=== PATIENT | female | born 1945 | race Caucasian/White ===

== ENCOUNTER 2019-04-30 19:04 | Inpatient (IN) | payer MEDICARE, OTHER ==
[~2019-04-30] VITALS: Ht 167.6 cm; Wt 62.3 kg
[2019-04-30 19:00] VITALS: BP 99/59
[2019-04-30] MEDS ORDERED: Z GUARD REMEDY PASTE 57 GM TUBE TOP PRN (19:15)
--- NOTE | 2019-04-30 19:22 | NUR ---
Patient arrived at 1825 via [facility] and [facility] ambulance service, vitals: 99/59, 83 HR, 98% on room air, 98.5 oral temperature, 17 respirations, stool collected and sent to lab for possible blood in stool, picture of sacral wound taken, will endorse admission to night shift supervisor nurse
[2019-04-30] MEDS ORDERED: ZINC220C8 PO (19:57)
[2019-04-30] MEDS ORDERED: FOLI1TAB16 PO (19:57)
[2019-04-30] MEDS ORDERED: HYDR10SY16 PO (19:57)
[2019-04-30] MEDS ORDERED: CARV6.252 PO (19:57)
[2019-04-30] MEDS ORDERED: GABA-534 PO (19:57)
[2019-04-30] MEDS ORDERED: ASCO500T10 PO (19:57)
[2019-04-30] MEDS ORDERED: NAPR220C15 PO (19:57)
[2019-04-30] MEDS ORDERED: ESCI10TA PO (19:57)
[2019-04-30] MEDS ORDERED: AMLO5TAB9 PO (19:57)
[2019-04-30] MEDS ORDERED: THIA100T13 PO (19:57)
[2019-04-30] MEDS ORDERED: MIRT30TA PO (19:57)
[2019-04-30] MEDS ORDERED: OXYB10TA2 PO (19:57)
[2019-04-30] MEDS ORDERED: METO25TA6 PO (19:57)
[2019-04-30] MEDS ORDERED: MULT-213 PO (19:57)
[2019-04-30 20:08] LABS: *OCCULT BLOOD STOOL POSITIVE (NEGATIVE)
[2019-04-30] MEDS ORDERED: MIRTAZAPINE 15 MG TABLET PO PRN (20:30)
[2019-04-30] MEDS ORDERED: hydrOXYzine HCL 10 MG/5 ML UDC PO PRN (20:30)
[2019-04-30 20:46] VITALS: BP 108/52
--- NOTE | 2019-04-30 22:02 | NUR ---
Received pt resting in bed. AAO x1-2. No acute distress noted. Denies pain/discomfort, no facial cues noted. Pertinent assessment done. MRSA swab sent to lab. VSS. Notified Dr. Escobar and Dr. Mata notified of admission. Med recon done. Belonging's list done and placed in chart. Oriented pt to the room. Safety measures maintained. Call light within reach. Will continue to monitor.
[2019-05-01 04:50] VITALS: BP 108/75
[2019-05-01 07:59] VITALS: BP 113/60
[2019-05-01] MEDS: GABAPENTIN 300 MG CAPSULE PO SCH ×3 (08:19→16:38)
[2019-05-01] MEDS: ESCITALOPRAM OXALATE 10 MG TABLET PO SCH (08:19)
[2019-05-01] MEDS: ZINC SULFATE 220 MG CAPSULE PO SCH (08:19)
[2019-05-01] MEDS: CARVEDILOL 6.25 MG TABLET PO SCH ×2 (08:20→16:38)
[2019-05-01] MEDS: THIAMINE HCL 100 MG TABLET PO SCH (08:20)
[2019-05-01] MEDS: ASCORBIC ACID 500 MG TABLET PO SCH ×2 (08:20→16:38)
[2019-05-01] MEDS: AMLODIPINE 5 MG TABLET PO SCH (08:20)
[2019-05-01] MEDS: FOLIC ACID 1 MG TABLET PO SCH (08:20)
[2019-05-01] MEDS: MULTIVITAMINS,THERAPEUTIC TABLET PO SCH (08:20)
[2019-05-01] MEDS: OXYBUTYNIN XL 5 MG TABSR PO SCH (08:21)
[2019-05-01] MEDS: METOPROLOL TARTRATE 25 MG TABLET PO SCH ×2 (08:21→16:38)
[2019-05-01] MEDS ORDERED: hydrOXYzine HCL 10 MG TABLET PO PRN (11:15)
--- NOTE | 2019-05-01 13:27 | NUR ---
Patient s/p new admission. Alert and oriented x2 with periods of confusion. Patient stage II pressure ulcer noted. Cleanse and applied hydrogel covered with mepilex. MD Lizarraga ordered wound consult for further observation. not in distress. positive occult blood relayed with no new order. Patient refuse therapy outside the room. will continue monitor
[2019-05-01 16:00] VITALS: BP 116/61
[2019-05-01 20:02] VITALS: BP 111/62
[2019-05-01] MEDS: MIRTAZAPINE 15 MG TABLET PO SCH (20:07)
--- NOTE | 2019-05-01 20:26 | NUR ---
Received pt sleeping comfortably. Aroused easily to verbal stimuli. AAO x1-2. No acute distress noted. Denies pain / discomfort. Due med given as ordered. Safety measures maintained. Call light and personal belongings within reach. Will continue to monitor.
[2019-05-02 04:07] VITALS: BP 127/66
[2019-05-02] MEDS: NAPROXEN 250 MG TABLET PO PRN ×2 (06:05→16:29)
--- NOTE | 2019-05-02 07:03 | NUR ---
Pt slept comfortably at night. All needs attended to promptly. Skin and wound care rendered. Turned and repositioned. Will endorse accordingly to oncoming shift.
[2019-05-02 08:25] VITALS: BP 106/63
[2019-05-02] MEDS: MULTIVITAMINS,THERAPEUTIC TABLET PO SCH (08:37)
[2019-05-02] MEDS: FOLIC ACID 1 MG TABLET PO SCH (08:37)
[2019-05-02] MEDS: CARVEDILOL 6.25 MG TABLET PO SCH ×2 (08:37→16:27)
[2019-05-02] MEDS: THIAMINE HCL 100 MG TABLET PO SCH (08:38)
[2019-05-02] MEDS: ZINC SULFATE 220 MG CAPSULE PO SCH (08:38)
[2019-05-02] MEDS: OXYBUTYNIN XL 5 MG TABSR PO SCH (08:38)
[2019-05-02] MEDS: ESCITALOPRAM OXALATE 10 MG TABLET PO SCH (08:38)
[2019-05-02] MEDS: GABAPENTIN 300 MG CAPSULE PO SCH ×3 (08:38→16:28)
[2019-05-02] MEDS: ASCORBIC ACID 500 MG TABLET PO SCH ×2 (08:38→16:28)
[2019-05-02] MEDS: AMLODIPINE 5 MG TABLET PO SCH (08:44)
[2019-05-02] MEDS: METOPROLOL TARTRATE 25 MG TABLET PO SCH ×2 (08:45→16:28)
--- NOTE | 2019-05-02 12:50 | NUR ---
WOUND CARE CONSULT: PT PRESENTS WITH SACRAL STAGE 2 ULCER AND RT ELBOW DRY ABRASION, PRESENT ON ADMISSION. RECOMMENDATIONS MADE FOR WOUND CARE AND SKIN PROTECTION. DISCUSSED WITH NURSING STAFF. PT IS INCONTINENT. WILL SEE PRN. ORR IN AGREEMENT WITH PLAN OF CARE. Addendum: 05/02/19 at 1251 by CHE BARCENAS RN Amended: Links added.
--- NOTE | 2019-05-02 14:22 | NUR ---
Pt received this morning resting in bed. Pt assessed, AOx2, forgetful at times, reports generalized stomach discomfort. Pt teaching provided on PRN medication given at 6am on an empty stomach. Discomfort subsided. Pt assisted to bathroom for voiding and BMx1. Pt compliant with routine medication, BP medication held due to VS 106/63, 80 hr. No acute distress or SOB noted on RA. Pt seen by MD, no new orders at this time. Pt seen by Lo AVILEZ for wound consult r/t sacral stage 2 and right elbow wound. Wound care provided as ordered. Bed in locked and lowest position with side rails up x2. Bed alarm on. All safety and comfort needs promptly attended to this shift. Personal items and call light placed within reach. Will continue to monitor.
[2019-05-02 16:14] VITALS: BP 109/65
--- NOTE | 2019-05-02 19:00 | NUR ---
In bed, awake, watching TV. Complaint of bilateral leg pain at this time. Will medicate for pain as needed. Safety measure and fall precaution maintained. Continue care as planned.
[2019-05-02] MEDS: ACETAMINOPHEN 325 MG TABLET PO PRN (19:31)
--- NOTE | 2019-05-02 19:32 | NUR ---
Medicated with Tylenol 650 mg for complaint of bilateral leg pain. Will monitor.
[2019-05-02 19:44] VITALS: BP 102/65
[2019-05-02] MEDS: MIRTAZAPINE 15 MG TABLET PO SCH (20:25)
[2019-05-03 05:59] VITALS: BP 108/61
--- NOTE | 2019-05-03 06:12 | NUR ---
Shift End Report: Vs stable. Slept good. Medicated once for BLE pain with relief. No further complaint presented. All needs attended and met. No significant event reported all night. Continue current rehab plan of care.
[2019-05-03 07:05] LABS: BASOPHILS % (AUTO) 0.4 % (0.0-2.0); EOSINOPHILS # (AUTO) 0.1 K/uL (0.0-0.7); HEMATOCRIT 34.1 % (31.2-41.9); HEMOGLOBIN 11.3 g/dL (10.9-14.3); LYMPHOCYTES # (AUTO) 2.4 K/uL (20.0-40.0); LYMPHOCYTES % (AUTO) 28.9 % (20.5-51.5); MEAN CORPUSCULAR HEMOGLOBIN 27.4 uug (24.7-32.8); MEAN CORPUSCULAR HGB CONC 33 g/dL (32.3-35.6); MEAN CORPUSCULAR VOLUME 82.5 fL (75.5-95.3); MONOCYTES # (AUTO) 0.8 K/uL (2.0-10.0); MONOCYTES % (AUTO) 9.7 % (0.0-11.0); PLATELET COUNT (AUTO) 265 K/uL (179-408); RED BLOOD CELL COUNT(AUTO) 4.13 MIL/uL (3.63-4.92); WHITE BLOOD COUNT (AUTO) 8.3 K/uL (3.8-11.8)
[2019-05-03 07:27] LABS: ALANINE AMINOTRANSFERASE 15 U/L (14-59); ALKALINE PHOSPHATASE 46 U/L (50-136); ASPARTATE AMINOTRANSFERASE 11 U/L (15-37); BILIRUBIN,TOTAL 0.3 mg/dL (0.2-1.0); CARBON DIOXIDE 30 mmol/L (21-32); CHLORIDE 104 mmol/L (98-107); CREATININE 0.9 mg/dL (0.6-1.3); GLUCOSE 88 mg/dL (74-106); TOTAL PROTEIN, SERUM 6.5 g/dL (6.4-8.2); UREA NITROGEN, BLOOD 23 mg/dL (7-18)
[2019-05-03 07:44] VITALS: BP 114/63
[2019-05-03] MEDS: MULTIVITAMINS,THERAPEUTIC TABLET PO SCH (08:08)
[2019-05-03] MEDS: OXYBUTYNIN XL 5 MG TABSR PO SCH (08:10)
[2019-05-03] MEDS: METOPROLOL TARTRATE 25 MG TABLET PO SCH ×2 (08:10→17:00)
[2019-05-03] MEDS: CARVEDILOL 6.25 MG TABLET PO SCH ×2 (08:10→17:00)
[2019-05-03] MEDS: AMLODIPINE 5 MG TABLET PO SCH (08:11)
[2019-05-03] MEDS: FOLIC ACID 1 MG TABLET PO SCH (08:11)
[2019-05-03] MEDS: ESCITALOPRAM OXALATE 10 MG TABLET PO SCH (08:11)
[2019-05-03] MEDS: ZINC SULFATE 220 MG CAPSULE PO SCH (08:11)
[2019-05-03] MEDS: GABAPENTIN 300 MG CAPSULE PO SCH ×3 (08:11→17:14)
[2019-05-03] MEDS: THIAMINE HCL 100 MG TABLET PO SCH (08:11)
[2019-05-03] MEDS: ASCORBIC ACID 500 MG TABLET PO SCH ×2 (08:11→17:14)
[2019-05-03] MEDS: Z GUARD REMEDY PASTE 57 GM TUBE TOP SCH ×2 (08:12→21:22)
--- NOTE | 2019-05-03 10:45 | NUR ---
Patient noted paste and smelly x2 BM. MD Lizarraga made aware. not in distress. no complaint voiced noted. Continue participating therapy for unsteady gait and ADL activity with good effect. will continue monitor
--- NOTE | 2019-05-03 11:00 | NUR ---
INDIVIDUALIZED OVERALL PLAN OF CARE
[2019-05-03 16:16] VITALS: BP 101/60
--- NOTE | 2019-05-03 19:05 | NUR ---
Awake in bed, watching TV at this time. Requested diaper change at this time. [employer] ATTENDANT at bedside. Denies any pain/discomforts. Safety measure and fall precaution maintained. Continue care as planned.
[2019-05-03] MEDS: MIRTAZAPINE 15 MG TABLET PO SCH (20:26)
[2019-05-03 21:04] VITALS: BP 96/62
[2019-05-04 04:20] VITALS: BP 121/71
--- NOTE | 2019-05-04 06:52 | NUR ---
Patient sleeping comfortably at this time, breathing is even and unlabored. Skin warm and dry to touch. Assisted with ADLs during shift, skin kept clean and dry; needs attended, call light at bed side, safety measures in place. endorsed to next shift and will continue with care.
[2019-05-04 08:10] VITALS: BP 113/57
[2019-05-04] MEDS: GABAPENTIN 300 MG CAPSULE PO SCH ×3 (08:30→17:01)
[2019-05-04] MEDS: ZINC SULFATE 220 MG CAPSULE PO SCH (08:31)
[2019-05-04] MEDS: ESCITALOPRAM OXALATE 10 MG TABLET PO SCH (08:31)
[2019-05-04] MEDS: FOLIC ACID 1 MG TABLET PO SCH (08:31)
[2019-05-04] MEDS: AMLODIPINE 5 MG TABLET PO SCH (08:31)
[2019-05-04] MEDS: THIAMINE HCL 100 MG TABLET PO SCH (08:31)
[2019-05-04] MEDS: ASCORBIC ACID 500 MG TABLET PO SCH ×2 (08:31→17:01)
[2019-05-04] MEDS: METOPROLOL TARTRATE 25 MG TABLET PO SCH ×2 (08:31→17:00)
[2019-05-04] MEDS: MULTIVITAMINS,THERAPEUTIC TABLET PO SCH (08:31)
[2019-05-04] MEDS: OXYBUTYNIN XL 5 MG TABSR PO SCH (08:31)
[2019-05-04] MEDS: CARVEDILOL 6.25 MG TABLET PO SCH ×2 (08:32→17:00)
[2019-05-04] MEDS: Z GUARD REMEDY PASTE 57 GM TUBE TOP SCH ×2 (08:32→21:50)
--- NOTE | 2019-05-04 14:57 | NUR ---
INTERDISCIPLINARY TEAM CONFERENCE
--- NOTE | 2019-05-04 15:51 | NUR ---
Patient continue therapy for unsteady gait and ADL activity. Continue on pain management prior to therapy and if needed. not in distress. will continue monitor
[2019-05-04 16:45] VITALS: BP 108/58
[2019-05-04 20:25] VITALS: BP 119/65
[2019-05-04] MEDS: MIRTAZAPINE 15 MG TABLET PO SCH (21:45)
--- NOTE | 2019-05-05 04:58 | NUR ---
Patient sleeping comfortably at this time, easily arousable; A & O x 2-3, in NO acute distress. Breathing is even and unlabored. Vital signs taken and stable. Due medications administered as ordered and scheduled. Assisted with ADLs during shift; Needs attended, kept clean and dry. Safety measures in place, call light left at bed side and will continue with care.
[2019-05-05 06:02] VITALS: BP 129/66
--- NOTE | 2019-05-05 08:00 | NUR ---
Received patient resting in bed awake, alert x23 with periods of forgetfulness and confusion. Not in any form of distress. No pain noted. No s/s of infection. Morning care done. Call light within reach.
[2019-05-05 09:12] VITALS: BP 134/60
--- NOTE | 2019-05-05 09:30 | NUR ---
Up with physical therapy tolerating well. Able to ambulate with front wheel walker, no pain noted.
[2019-05-05] MEDS: CARVEDILOL 6.25 MG TABLET PO SCH ×2 (09:48→17:53)
[2019-05-05] MEDS: FOLIC ACID 1 MG TABLET PO SCH (09:48)
[2019-05-05] MEDS: ESCITALOPRAM OXALATE 10 MG TABLET PO SCH (09:49)
[2019-05-05] MEDS: MULTIVITAMINS,THERAPEUTIC TABLET PO SCH (09:49)
[2019-05-05] MEDS: GABAPENTIN 300 MG CAPSULE PO SCH ×3 (09:49→17:52)
[2019-05-05] MEDS: AMLODIPINE 5 MG TABLET PO SCH (09:49)
[2019-05-05] MEDS: THIAMINE HCL 100 MG TABLET PO SCH (09:50)
[2019-05-05] MEDS: METOPROLOL TARTRATE 25 MG TABLET PO SCH ×2 (09:50→17:53)
[2019-05-05] MEDS: OXYBUTYNIN XL 5 MG TABSR PO SCH (09:50)
[2019-05-05] MEDS: ASCORBIC ACID 500 MG TABLET PO SCH ×2 (09:50→17:52)
[2019-05-05] MEDS: ZINC SULFATE 220 MG CAPSULE PO SCH (09:50)
[2019-05-05] MEDS: Z GUARD REMEDY PASTE 57 GM TUBE TOP SCH ×2 (09:58→20:33)
[2019-05-05 15:40] VITALS: BP 102/60
[2019-05-05 19:45] VITALS: BP 102/52
[2019-05-05] MEDS: MIRTAZAPINE 15 MG TABLET PO SCH (20:32)
--- NOTE | 2019-05-05 21:16 | NUR ---
Received pt resting in bed. AAO x2. No acute distress noted. Denies pain/ discomfort. Snack given as per request. VS WNL. Due med given as ordered. Refused diaper change and wound care at this time stating that she will call if she needs to be changed. Risks and benefits explained. Safety measures maintained. Call light within reach. Will continue to monitor.
--- NOTE | 2019-05-06 05:15 | NUR ---
Pt slept comfortably at night. Diaper changed. Wound and skin care rendered. All needs attended to promptly. Will continue to monitor.
[2019-05-06 05:30] VITALS: BP 112/71
[2019-05-06 07:39] LABS: BASOPHILS # (AUTO) 0.1 K/uL (0.0-8.0); BASOPHILS % (AUTO) 1.1 % (0.0-2.0); EOSINOPHILS # (AUTO) 0.1 K/uL (0.0-0.7); EOSINOPHILS % (AUTO) 0.9 % (0.0-7.0); HEMATOCRIT 35.5 % (31.2-41.9); HEMOGLOBIN 11.8 g/dL (10.9-14.3); LYMPHOCYTES # (AUTO) 2.5 K/uL (20.0-40.0); LYMPHOCYTES % (AUTO) 29.6 % (20.5-51.5); MEAN CORPUSCULAR HEMOGLOBIN 27.4 uug (24.7-32.8); MEAN CORPUSCULAR HGB CONC 33 g/dL (32.3-35.6); MEAN CORPUSCULAR VOLUME 82.5 fL (75.5-95.3); MONOCYTES # (AUTO) 0.7 K/uL (2.0-10.0); MONOCYTES % (AUTO) 8.6 % (0.0-11.0); NEUTROPHILS # (AUTO) 5.1 K/uL (1.8-8.9); NEUTROPHILS % (AUTO) 59.8 % (38.5-71.5); PLATELET COUNT (AUTO) 293 K/uL (179-408); WHITE BLOOD COUNT (AUTO) 8.5 K/uL (3.8-11.8)
[2019-05-06 07:50] LABS: CARBON DIOXIDE 26 mmol/L (21-32); CHLORIDE 105 mmol/L (98-107); GLUCOSE 92 mg/dL (74-106); MAGNESIUM 1.6 mg/dL (1.8-2.4); PHOSPHOROUS 4.5 mg/dL (2.5-4.9); POTASSIUM 4.3 mmol/L (3.5-5.1); UREA NITROGEN, BLOOD 20 mg/dL (7-18)
--- NOTE | 2019-05-06 08:04 | NUR ---
Patient noted resting in bed, no complaints of pain, no signs of distress noted, call light in reach, bed locked and in lowest positon, all needs met at this time
[2019-05-06] MEDS: THIAMINE HCL 100 MG TABLET PO SCH (08:59)
[2019-05-06] MEDS: ESCITALOPRAM OXALATE 10 MG TABLET PO SCH (08:59)
[2019-05-06] MEDS: OXYBUTYNIN XL 5 MG TABSR PO SCH (08:59)
[2019-05-06] MEDS: GABAPENTIN 300 MG CAPSULE PO SCH ×3 (08:59→17:02)
[2019-05-06] MEDS: FOLIC ACID 1 MG TABLET PO SCH (08:59)
[2019-05-06] MEDS: ASCORBIC ACID 500 MG TABLET PO SCH ×2 (08:59→17:02)
[2019-05-06] MEDS: MULTIVITAMINS,THERAPEUTIC TABLET PO SCH (08:59)
[2019-05-06] MEDS: AMLODIPINE 5 MG TABLET PO SCH (09:00)
[2019-05-06] MEDS: ZINC SULFATE 220 MG CAPSULE PO SCH (09:00)
[2019-05-06] MEDS: CARVEDILOL 6.25 MG TABLET PO SCH ×2 (09:00→17:00)
[2019-05-06] MEDS: METOPROLOL TARTRATE 25 MG TABLET PO SCH ×2 (09:00→17:00)
[2019-05-06] MEDS: Z GUARD REMEDY PASTE 57 GM TUBE TOP SCH ×2 (09:03→20:15)
[2019-05-06 09:24] VITALS: BP 94/58
[2019-05-06] MEDS ORDERED: MAGNESIUM OXIDE 400 MG TABLET PO ONE (16:00)
[2019-05-06 16:34] VITALS: BP 98/52
[2019-05-06] MEDS: ACETAMINOPHEN 325 MG TABLET PO PRN (17:02)
[2019-05-06 19:45] VITALS: BP 97/51
[2019-05-06] MEDS: MIRTAZAPINE 15 MG TABLET PO SCH (20:14)
--- NOTE | 2019-05-06 20:54 | NUR ---
Received pt resting in bed. AAO x2. No acute distress noted. Denies pain/discomfort. Due med given as ordered. Safety measures maintained. Call light within reach. Will continue to monitor.
[2019-05-07 06:13] VITALS: BP 124/69
--- NOTE | 2019-05-07 08:00 | NUR ---
Received patient, awake alert x2-3. With periods of forgetfulness. Re-oriented as necessary. Morning care done, katie-care done. Not in any form of distress, denies any pain.
[2019-05-07 09:00] VITALS: BP 108/70
[2019-05-07] MEDS: CARVEDILOL 6.25 MG TABLET PO SCH ×2 (09:00→17:00)
[2019-05-07] MEDS: METOPROLOL TARTRATE 25 MG TABLET PO SCH ×2 (09:00→17:00)
[2019-05-07] MEDS: AMLODIPINE 5 MG TABLET PO SCH (09:00)
[2019-05-07] MEDS: GABAPENTIN 300 MG CAPSULE PO SCH ×3 (09:06→17:29)
[2019-05-07] MEDS: ESCITALOPRAM OXALATE 10 MG TABLET PO SCH (09:06)
[2019-05-07] MEDS: FOLIC ACID 1 MG TABLET PO SCH (09:06)
[2019-05-07] MEDS: ASCORBIC ACID 500 MG TABLET PO SCH ×2 (09:07→17:29)
[2019-05-07] MEDS: MULTIVITAMINS,THERAPEUTIC TABLET PO SCH (09:07)
[2019-05-07] MEDS: THIAMINE HCL 100 MG TABLET PO SCH (09:07)
[2019-05-07] MEDS: OXYBUTYNIN XL 5 MG TABSR PO SCH (09:07)
[2019-05-07] MEDS: ZINC SULFATE 220 MG CAPSULE PO SCH (09:10)
[2019-05-07] MEDS: Z GUARD REMEDY PASTE 57 GM TUBE TOP SCH ×2 (09:11→20:32)
--- NOTE | 2019-05-07 11:13 | NUR ---
Up with occupational therapy, tolerating well. Able to ambulate with walker. No pain noted.
[2019-05-07 15:00] VITALS: BP 103/60
[2019-05-07 19:30] VITALS: BP 96/53
--- NOTE | 2019-05-07 19:30 | NUR ---
Sleeping during initial rounds with HOB slightly elevated. No s/s of respiratory distress. Safety measure and afll precaution maintained. Continue care as planned.
[2019-05-07] MEDS: MIRTAZAPINE 15 MG TABLET PO SCH (20:31)
[2019-05-08 05:18] VITALS: BP 96/47
--- NOTE | 2019-05-08 06:24 | NUR ---
Shift End Report: Vs stable. Slept good. No complaint presented the whole night. No significant event reported. All needs attended and met. Continue current rehab plan of care.
[2019-05-08 09:00] VITALS: BP 105/56
[2019-05-08] MEDS: METOPROLOL TARTRATE 25 MG TABLET PO SCH ×2 (09:00→17:00)
[2019-05-08] MEDS: AMLODIPINE 5 MG TABLET PO SCH (09:00)
[2019-05-08] MEDS: CARVEDILOL 6.25 MG TABLET PO SCH ×2 (09:00→17:00)
[2019-05-08] MEDS: THIAMINE HCL 100 MG TABLET PO SCH (09:11)
[2019-05-08] MEDS: OXYBUTYNIN XL 5 MG TABSR PO SCH (09:11)
[2019-05-08] MEDS: ESCITALOPRAM OXALATE 10 MG TABLET PO SCH (09:11)
[2019-05-08] MEDS: ZINC SULFATE 220 MG CAPSULE PO SCH (09:11)
[2019-05-08] MEDS: MULTIVITAMINS,THERAPEUTIC TABLET PO SCH (09:11)
[2019-05-08] MEDS: ASCORBIC ACID 500 MG TABLET PO SCH ×2 (09:12→18:11)
[2019-05-08] MEDS: GABAPENTIN 300 MG CAPSULE PO SCH ×3 (09:13→18:11)
[2019-05-08] MEDS: FOLIC ACID 1 MG TABLET PO SCH (09:14)
[2019-05-08] MEDS: Z GUARD REMEDY PASTE 57 GM TUBE TOP SCH ×2 (09:18→20:05)
--- NOTE | 2019-05-08 09:35 | NUR ---
Received patient resting in bed, awake, alert x2-3. Denies any pain, no S/S of infections. With some periods of forgetfulness, baseline LOC. Not in any form of distress. Will continue to monitor.
--- NOTE | 2019-05-08 11:32 | NUR ---
Up with occupational therapy, showered with minimal assistance. Tolerated therapy well no pain noted. Able to ambulate with walker.
[2019-05-08 17:00] VITALS: BP 118/54
--- NOTE | 2019-05-08 19:30 | NUR ---
RECEIVED PATIENT AWAKE AND RESTING WELL. NO S/S OF RESPIRATORY DISTRESS NOTED. V/S STABLE. FALL PRECAUTIONS MAINTAINED. CALL LIGHT WITH IN REACH. WILL CONTINUE TO MONITOR
[2019-05-08] MEDS: MIRTAZAPINE 15 MG TABLET PO SCH (20:04)
[2019-05-08 20:05] VITALS: BP 106/56
--- NOTE | 2019-05-09 07:03 | NUR ---
SHIFT END REPORT: V/S STABLE. SLEPT GOOD THROUGH NIGHT. NO C/O PAIN. NO ACUTE DISTRESS NOTED. NO SIGNIFICANT EVENT REPORTED. ALL NEEDS ATTENDED AND MET. CONTINUE CURRENT PLAN OF CARE.
--- NOTE | 2019-05-09 08:11 | NUR ---
Received patient resting in bed, awake, alert x2-3. Denies any pain, no S/S of infections. With some periods of forgetfulness, baseline LOC. Not in any form of distress. Morning care done.
[2019-05-09 09:00] VITALS: BP 119/66
[2019-05-09] MEDS: MULTIVITAMINS,THERAPEUTIC TABLET PO SCH (09:19)
[2019-05-09] MEDS: FOLIC ACID 1 MG TABLET PO SCH (09:19)
[2019-05-09] MEDS: GABAPENTIN 300 MG CAPSULE PO SCH ×3 (09:19→17:29)
[2019-05-09] MEDS: METOPROLOL TARTRATE 25 MG TABLET PO SCH ×2 (09:19→17:30)
[2019-05-09] MEDS: CARVEDILOL 6.25 MG TABLET PO SCH ×2 (09:19→17:29)
[2019-05-09] MEDS: ZINC SULFATE 220 MG CAPSULE PO SCH (09:19)
[2019-05-09] MEDS: ESCITALOPRAM OXALATE 10 MG TABLET PO SCH (09:19)
[2019-05-09] MEDS: THIAMINE HCL 100 MG TABLET PO SCH (09:20)
[2019-05-09] MEDS: OXYBUTYNIN XL 5 MG TABSR PO SCH (09:20)
[2019-05-09] MEDS: ASCORBIC ACID 500 MG TABLET PO SCH ×2 (09:20→17:29)
[2019-05-09] MEDS: AMLODIPINE 5 MG TABLET PO SCH (09:20)
[2019-05-09] MEDS: Z GUARD REMEDY PASTE 57 GM TUBE TOP SCH ×2 (09:21→20:27)
--- NOTE | 2019-05-09 14:10 | NUR ---
Up with occupational therapy, tolerating well. Denies any pain. Able to ambulate with front wheel walker.
[2019-05-09 17:00] VITALS: BP 114/63
[2019-05-09 19:30] VITALS: BP 96/52
--- NOTE | 2019-05-09 19:30 | NUR ---
Received in bed watching TV. Patient alert and oriented x 3.No C/O pain or SOB upon assessment. Assisted with night time ADLs. Side rails up bilaterally. Call light and frequently used items within reach. Will continue to monitor..
[2019-05-09] MEDS: MIRTAZAPINE 15 MG TABLET PO SCH (20:26)
[2019-05-10 05:43] VITALS: BP 133/65
[2019-05-10] MEDS: ESCITALOPRAM OXALATE 10 MG TABLET PO SCH (08:34)
[2019-05-10] MEDS: ZINC SULFATE 220 MG CAPSULE PO SCH (08:34)
[2019-05-10] MEDS: METOPROLOL TARTRATE 25 MG TABLET PO SCH ×2 (08:34→17:00)
[2019-05-10] MEDS: AMLODIPINE 5 MG TABLET PO SCH (08:35)
[2019-05-10] MEDS: CARVEDILOL 6.25 MG TABLET PO SCH ×2 (08:35→17:00)
[2019-05-10] MEDS: ASCORBIC ACID 500 MG TABLET PO SCH ×2 (08:35→17:23)
[2019-05-10] MEDS: GABAPENTIN 300 MG CAPSULE PO SCH ×3 (08:35→17:23)
[2019-05-10] MEDS: FOLIC ACID 1 MG TABLET PO SCH (08:36)
[2019-05-10] MEDS: MULTIVITAMINS,THERAPEUTIC TABLET PO SCH (08:36)
[2019-05-10] MEDS: THIAMINE HCL 100 MG TABLET PO SCH (08:36)
[2019-05-10] MEDS: OXYBUTYNIN XL 5 MG TABSR PO SCH (08:36)
[2019-05-10] MEDS: Z GUARD REMEDY PASTE 57 GM TUBE TOP SCH ×2 (08:37→20:43)
--- NOTE | 2019-05-10 10:08 | NUR ---
Received patient awake in bed. Alert and orientedx2 with periods of confusion. Continue therapy for ambulation and ADL ability. no complaint of pain/discomfort noted. not in distress. will continue monitor
[2019-05-10 10:38] VITALS: BP 115/60
[2019-05-10 17:00] VITALS: BP 102/59
[2019-05-10 19:34] VITALS: BP 96/54
[2019-05-10] MEDS: MIRTAZAPINE 15 MG TABLET PO SCH (20:43)
--- NOTE | 2019-05-11 04:03 | NUR ---
awake alert and oriented x2-3 with some periods of confusion. fall precautions maintained. incontinent of urine and BM.kept clean and dry. VSS needs attended. denies any pain nor any discomfort. will monitor patient.
[2019-05-11 05:45] VITALS: BP 97/53
[2019-05-11 08:42] VITALS: BP 148/64
[2019-05-11 09:00] LABS: BASOPHILS # (AUTO) 0.1 K/uL (0.0-8.0); BASOPHILS % (AUTO) 1.1 % (0.0-2.0); EOSINOPHILS # (AUTO) 0.1 K/uL (0.0-0.7); HEMATOCRIT 35.9 % (31.2-41.9); HEMOGLOBIN 11.9 g/dL (10.9-14.3); LYMPHOCYTES # (AUTO) 2.1 K/uL (20.0-40.0); LYMPHOCYTES % (AUTO) 30.1 % (20.5-51.5); MEAN CORPUSCULAR HEMOGLOBIN 27.4 uug (24.7-32.8); MEAN CORPUSCULAR HGB CONC 33 g/dL (32.3-35.6); MEAN CORPUSCULAR VOLUME 82.6 fL (75.5-95.3); MONOCYTES # (AUTO) 0.5 K/uL (2.0-10.0); MONOCYTES % (AUTO) 7.8 % (0.0-11.0); NEUTROPHILS # (AUTO) 4.1 K/uL (1.8-8.9); PLATELET COUNT (AUTO) 274 K/uL (179-408); RED BLOOD CELL COUNT(AUTO) 4.35 MIL/uL (3.63-4.92); WHITE BLOOD COUNT (AUTO) 6.9 K/uL (3.8-11.8)
[2019-05-11] MEDS: METOPROLOL TARTRATE 25 MG TABLET PO SCH ×2 (09:00→16:23)
[2019-05-11] MEDS: AMLODIPINE 5 MG TABLET PO SCH (09:00)
[2019-05-11 09:05] LABS: CARBON DIOXIDE 27 mmol/L (21-32); CHLORIDE 104 mmol/L (98-107); CREATININE 1.1 mg/dL (0.6-1.3); GLUCOSE 156 mg/dL (74-106); MAGNESIUM 1.6 mg/dL (1.8-2.4); POTASSIUM 3.8 mmol/L (3.5-5.1); UREA NITROGEN, BLOOD 31 mg/dL (7-18)
[2019-05-11] MEDS: GABAPENTIN 300 MG CAPSULE PO SCH ×3 (09:21→16:33)
[2019-05-11] MEDS: ESCITALOPRAM OXALATE 10 MG TABLET PO SCH (09:21)
[2019-05-11] MEDS: ZINC SULFATE 220 MG CAPSULE PO SCH (09:21)
[2019-05-11] MEDS: FOLIC ACID 1 MG TABLET PO SCH (09:21)
[2019-05-11] MEDS: ASCORBIC ACID 500 MG TABLET PO SCH ×2 (09:21→16:33)
[2019-05-11] MEDS: MULTIVITAMINS,THERAPEUTIC TABLET PO SCH (09:21)
[2019-05-11] MEDS: CARVEDILOL 6.25 MG TABLET PO SCH ×2 (09:22→16:23)
[2019-05-11] MEDS: OXYBUTYNIN XL 5 MG TABSR PO SCH (09:22)
[2019-05-11] MEDS: THIAMINE HCL 100 MG TABLET PO SCH (09:22)
[2019-05-11] MEDS: Z GUARD REMEDY PASTE 57 GM TUBE TOP SCH ×2 (09:23→20:00)
--- NOTE | 2019-05-11 14:58 | NUR ---
INTERDISCIPLINARY TEAM CONFERENCE
[2019-05-11 15:52] VITALS: BP 101/62
--- NOTE | 2019-05-11 19:55 | NUR ---
Received in bed watching TV. Patient alert and oriented x 3. No C/O pain or SOB upon assessment. Assisted with night time ADLs. Side rails up bilaterally. Call light and frequently used items within reach. Will continue to monitor..
[2019-05-11] MEDS: MIRTAZAPINE 15 MG TABLET PO SCH (20:00)
[2019-05-11 20:25] VITALS: BP 97/54
[2019-05-12 05:14] VITALS: BP 102/56
[2019-05-12] MEDS: OXYBUTYNIN XL 5 MG TABSR PO SCH (08:38)
[2019-05-12] MEDS: CARVEDILOL 6.25 MG TABLET PO SCH ×2 (08:39→17:11)
[2019-05-12] MEDS: ESCITALOPRAM OXALATE 10 MG TABLET PO SCH (08:40)
[2019-05-12] MEDS: AMLODIPINE 5 MG TABLET PO SCH (08:40)
[2019-05-12] MEDS: METOPROLOL TARTRATE 25 MG TABLET PO SCH ×2 (08:41→17:00)
[2019-05-12] MEDS: FOLIC ACID 1 MG TABLET PO SCH (08:41)
[2019-05-12] MEDS: THIAMINE HCL 100 MG TABLET PO SCH (08:42)
[2019-05-12] MEDS: MULTIVITAMINS,THERAPEUTIC TABLET PO SCH (08:42)
[2019-05-12] MEDS: GABAPENTIN 300 MG CAPSULE PO SCH ×3 (08:42→17:11)
[2019-05-12] MEDS: Z GUARD REMEDY PASTE 57 GM TUBE TOP SCH ×2 (08:46→20:20)
[2019-05-12 10:56] VITALS: BP 115/59
[2019-05-12] MEDS: ZINC SULFATE 220 MG CAPSULE PO SCH (11:34)
[2019-05-12] MEDS: ASCORBIC ACID 500 MG TABLET PO SCH ×2 (11:34→17:00)
[2019-05-12 16:34] VITALS: BP 112/66
--- NOTE | 2019-05-12 19:35 | NUR ---
Patient alert and oriented x 3. No C/O pain or SOB upon assessment. Assisted with night time ADLs. Side rails up bilaterally. Call light and frequently used items within reach. Will continue to monitor.
[2019-05-12] MEDS: MIRTAZAPINE 15 MG TABLET PO SCH (20:19)
[2019-05-12 21:31] VITALS: BP 93/49
[2019-05-13 06:35] VITALS: BP 102/55
[2019-05-13] MEDS: ESCITALOPRAM OXALATE 10 MG TABLET PO SCH (09:25)
[2019-05-13] MEDS: FOLIC ACID 1 MG TABLET PO SCH (09:25)
[2019-05-13] MEDS: ASCORBIC ACID 500 MG TABLET PO SCH ×2 (09:25→17:11)
[2019-05-13] MEDS: GABAPENTIN 300 MG CAPSULE PO SCH ×3 (09:25→17:11)
[2019-05-13] MEDS: ZINC SULFATE 220 MG CAPSULE PO SCH (09:25)
[2019-05-13] MEDS: THIAMINE HCL 100 MG TABLET PO SCH (09:26)
[2019-05-13] MEDS: MULTIVITAMINS,THERAPEUTIC TABLET PO SCH (09:26)
[2019-05-13] MEDS: CARVEDILOL 6.25 MG TABLET PO SCH ×2 (09:26→17:14)
[2019-05-13] MEDS: Z GUARD REMEDY PASTE 57 GM TUBE TOP SCH ×2 (09:28→20:23)
[2019-05-13] MEDS: OXYBUTYNIN XL 5 MG TABSR PO SCH (09:28)
[2019-05-13] MEDS: METOPROLOL TARTRATE 25 MG TABLET PO SCH ×2 (09:38→17:00)
[2019-05-13] MEDS: AMLODIPINE 5 MG TABLET PO SCH (09:38)
[2019-05-13 10:22] VITALS: BP 123/60
[2019-05-13 16:15] VITALS: BP_SYST 111; BP_SYST 135; BP_DIAS 63; BP_DIAS 66
[2019-05-13] MEDS: MIRTAZAPINE 15 MG TABLET PO SCH (20:21)
[2019-05-13 20:39] VITALS: BP 99/60
--- NOTE | 2019-05-13 21:24 | NUR ---
Received pt resting in bed. AAO x2-3. No acute distress noted. Denies pain or discomfort at this time. Due meds given as ordered. Safety measures maintained. Call light within reach. Will continue to monitor.
[2019-05-14 05:48] VITALS: BP 103/52
[2019-05-14 08:00] VITALS: BP 103/63
[2019-05-14] MEDS: FOLIC ACID 1 MG TABLET PO SCH (08:19)
[2019-05-14] MEDS: MULTIVITAMINS,THERAPEUTIC TABLET PO SCH (08:19)
[2019-05-14] MEDS: GABAPENTIN 300 MG CAPSULE PO SCH ×3 (08:19→17:47)
[2019-05-14] MEDS: ASCORBIC ACID 500 MG TABLET PO SCH ×2 (08:19→17:47)
[2019-05-14] MEDS: ZINC SULFATE 220 MG CAPSULE PO SCH (08:19)
[2019-05-14] MEDS: THIAMINE HCL 100 MG TABLET PO SCH (08:19)
[2019-05-14] MEDS: ESCITALOPRAM OXALATE 10 MG TABLET PO SCH (08:19)
[2019-05-14] MEDS: OXYBUTYNIN XL 5 MG TABSR PO SCH (08:19)
[2019-05-14] MEDS: AMLODIPINE 5 MG TABLET PO SCH (08:21)
[2019-05-14] MEDS: METOPROLOL TARTRATE 25 MG TABLET PO SCH ×2 (08:21→17:48)
[2019-05-14] MEDS: Z GUARD REMEDY PASTE 57 GM TUBE TOP SCH ×2 (08:23→20:32)
[2019-05-14] MEDS: CARVEDILOL 6.25 MG TABLET PO SCH ×2 (08:23→17:48)
--- NOTE | 2019-05-14 10:36 | NUR ---
Patient noted resting in bed, no complaints of pain, no signs of distress noted, took all AM medications, call light in reach, bed locked and in lowest position, all needs known
[2019-05-14 16:22] VITALS: BP 135/63
[2019-05-14 19:49] VITALS: BP 103/54
--- NOTE | 2019-05-14 19:50 | NUR ---
PATIENT ALERT AWAKE NO COMPLAIN OF PAIN, NO SOB NO CHEST PAIN. KEPT CLEAN AND DRY, TURN AND REPOSITION EVERY TWO HOURS, CALL LIGHT WITHIN REACH. CONT TO MONITOR.
[2019-05-14] MEDS: MIRTAZAPINE 15 MG TABLET PO SCH (20:30)
[2019-05-15 05:20] VITALS: BP 109/55
--- NOTE | 2019-05-15 05:31 | NUR ---
PATIENT ALERT, SLEPT MOST PART OF THE NIGHT, NO COMPLAIN OF PAIN AT THIS TIME, CONT TO MONITOR.
[2019-05-15 07:57] VITALS: BP 109/60
[2019-05-15] MEDS: CARVEDILOL 6.25 MG TABLET PO SCH ×2 (08:52→16:43)
[2019-05-15] MEDS: AMLODIPINE 5 MG TABLET PO SCH (08:53)
[2019-05-15] MEDS: METOPROLOL TARTRATE 25 MG TABLET PO SCH ×2 (08:53→16:44)
[2019-05-15] MEDS: ASCORBIC ACID 500 MG TABLET PO SCH ×2 (08:54→16:45)
[2019-05-15] MEDS: OXYBUTYNIN XL 5 MG TABSR PO SCH (08:54)
[2019-05-15] MEDS: MULTIVITAMINS,THERAPEUTIC TABLET PO SCH (08:54)
[2019-05-15] MEDS: GABAPENTIN 300 MG CAPSULE PO SCH ×3 (08:54→16:45)
[2019-05-15] MEDS: Z GUARD REMEDY PASTE 57 GM TUBE TOP SCH ×2 (08:55→20:42)
[2019-05-15] MEDS: ESCITALOPRAM OXALATE 10 MG TABLET PO SCH (08:55)
[2019-05-15] MEDS: FOLIC ACID 1 MG TABLET PO SCH (08:55)
[2019-05-15] MEDS: THIAMINE HCL 100 MG TABLET PO SCH (08:56)
[2019-05-15] MEDS: ZINC SULFATE 220 MG CAPSULE PO SCH (08:56)
--- NOTE | 2019-05-15 11:36 | NUR ---
Received patient awake in bed in stable condition. no complaint of pain/discomfort noted. not in distress. will continue monitor
[2019-05-15 16:22] VITALS: BP 97/50
--- NOTE | 2019-05-15 19:30 | NUR ---
Patient alert and oriented x 3. No C/O pain or SOB upon assessment. Weekly photo of wounds taken and placed in chart. TMS signed and placed in chart. Patient ready for discharge tomorrow. Side rails up bilaterally. Call light and frequently used items within reach. Will continue to monitor.
[2019-05-15 20:36] VITALS: BP 93/49
[2019-05-15] MEDS: MIRTAZAPINE 15 MG TABLET PO SCH (20:41)
--- NOTE | 2019-05-16 02:04 | NUR ---
New assignment. Pt sleeping comfortably. No acute distress noted. Pt to be discharge today. Safety measures maintained. Bed alarm on. Call light within reach. Will continue to monitor.
[2019-05-16 05:10] VITALS: BP 104/57
[2019-05-16 07:15] VITALS: BP 98/57
[2019-05-16] MEDS: ESCITALOPRAM OXALATE 10 MG TABLET PO SCH (08:24)
[2019-05-16] MEDS: FOLIC ACID 1 MG TABLET PO SCH (08:24)
[2019-05-16] MEDS: OXYBUTYNIN XL 5 MG TABSR PO SCH (08:24)
[2019-05-16] MEDS: ZINC SULFATE 220 MG CAPSULE PO SCH (08:24)
[2019-05-16] MEDS: MULTIVITAMINS,THERAPEUTIC TABLET PO SCH (08:24)
[2019-05-16] MEDS: GABAPENTIN 300 MG CAPSULE PO SCH ×2 (08:24→12:31)
[2019-05-16] MEDS: CARVEDILOL 6.25 MG TABLET PO SCH (08:24)
[2019-05-16 08:25] VITALS: BP 98/51
[2019-05-16] MEDS: Z GUARD REMEDY PASTE 57 GM TUBE TOP SCH (08:25)
[2019-05-16] MEDS: METOPROLOL TARTRATE 25 MG TABLET PO SCH (08:25)
[2019-05-16] MEDS: ASCORBIC ACID 500 MG TABLET PO SCH (08:25)
[2019-05-16] MEDS: AMLODIPINE 5 MG TABLET PO SCH (08:25)
[2019-05-16] MEDS: THIAMINE HCL 100 MG TABLET PO SCH (08:27)
--- NOTE | 2019-05-16 15:40 | NUR ---
Patient discharge to [facility] assisted living in stable condition via hired transport around 335pm. Medication list and valuables given to patient. Medical instruction given to patient. verbalize understanding.Physical and history, medication list given to coordinator.
== END 2019-05-16 15:35 | disposition home health service (06) | DRG 91 ==
PROVIDERS: ADMIT Physical Medicine & Rehabilitation Pain Medicine; ATTEND Physical Medicine & Rehabilitation Pain Medicine
DX: G92 Toxic encephalopathy (principal); R65.11 Systemic inflammatory response syndrome (SIRS) of non-infectious origin with acute organ dysfunction; E43 Unspecified severe protein-calorie malnutrition; N17.0 Acute kidney failure with tubular necrosis; Z68.1 Body mass index [BMI] 19.9 or less, adult; I10 Essential (primary) hypertension; I48.91 Unspecified atrial fibrillation; E86.9 Volume depletion, unspecified; F32.9 Major depressive disorder, single episode, unspecified; L89.152 Pressure ulcer of sacral region, stage 2; D72.829 Elevated white blood cell count, unspecified; M54.5 Low back pain; M79.606 Pain in leg, unspecified; Z88.8 Allergy status to other drugs, medicaments and biological substances; R53.1 Weakness; R19.5 Other fecal abnormalities
CPT/HCPCS: 36415; 83735; 84100; 85025; A4663; J8499